=== PATIENT | female | born 1930 | race Caucasian/White ===

== ENCOUNTER 2020-07-22 23:57 | Inpatient (IN) | payer MEDICARE, OTHER ==
[2020-07-23 00:49] LABS: BILIRUBIN NEGATIVE (NEGATIVE); BLOOD TRACE-INTACT Ery/uL (NEGATIVE); CLARITY CLEAR (CLEAR); COLOR YELLOW (YELLOW); GLUCOSE (U) NORMAL (NORMAL); LEUKOCYTES NEGATIVE Leu/uL (NEGATIVE); NITRITE NEGATIVE (NEGATIVE); PROTEIN 2+ mg/dL (NEGATIVE); SPECIFIC GRAVITY 1.025 (1.001-1.030); UROBILINOGEN 0.2 mg/dL (0.2-1.0)
[2020-07-23 00:57] LABS: BACTERIA TRACE; GRANULAR CASTS TRACE; SQUAMOUS EPITHELIAL CELLS RARE; URINARY RBC RARE; URINARY WBC RARE
[2020-07-23 01:28] LABS: BASOPHIL 0.2 % (0-2); EOSINOPHIL 0 % (0-7); HCT 43.5 % (37.0-47.0); HGB 14.8 g/dl (12.5-16.0); LYMPHOCYTE 4.3 % (15-48); MCV 88.1 fL (78.0-100.0); MONOCYTE 4.4 % (0-12); MPV 10.6 fL (6.0-9.5); NEUTROPHIL 90.4 % (41-80); NRBC 0; PLT 164 K/uL (150-400); RBC 4.94 M/uL (4.20-5.40); RDW 14.9 % (11.5-14.0); WBC 10.9 K/uL (4.0-10.5)
[2020-07-23 01:36] LABS: LACTIC ACID 3.4 mmol/L (0.4-1.9)
[2020-07-23 01:39] LABS: ALBUMIN 3.5 g/dL (3.4-5.0); BILIRUBIN - TOTAL 0.7 mg/dL (0.2-1.0); BUN/CREAT RATIO (CALC) 23.6 RATIO; CREATININE 1.61 mg/dL (0.51-0.95); FT4 (FREE T4) 0.3 ng/dL (0.76-1.46); GLOBULIN (CALCULATION) 4.6 g/dL; POTASSIUM 2.8 mmol/L (3.5-5.1); TOTAL PROTEIN 8.1 g/dL (6.4-8.2)
[2020-07-23 02:01] LABS: CORONAVIRUS 2019 SARS-COV-2 POSITIVE (NEGATIVE); INFLUENZA A NAA NEGATIVE (NEGATIVE)
[2020-07-23 02:50] LABS: C-REACTIVE PROTEIN >18.00 mg/dL (<=0.90); LDH 403 U/L (81-234)
[2020-07-23 07:33] LABS: CREATININE 1.27 mg/dL (0.51-0.95); MAGNESIUM 2.2 mg/dL (1.8-2.4); POTASSIUM 2.8 mmol/L (3.5-5.1)
[2020-07-23] MEDS ORDERED: LOPRESSOR50 MG PO (19:46)
[2020-07-23] MEDS ORDERED: HCTZ12.5 MG PO (19:46)
[2020-07-23] MEDS ORDERED: KLOR-CON M 1010 MEQ PO (19:47)
[2020-07-23] MEDS ORDERED: ADALAT CC30 MG PO (19:48)
[2020-07-23] MEDS ORDERED: ZOCOR40 MG PO (19:48)
[2020-07-23] MEDS ORDERED: FOLIC ACID1 MG PO (19:48)
[2020-07-24 08:25] LABS: BASOPHIL 0.1 % (0-2); EOSINOPHIL 0 % (0-7); HCT 37.1 % (37.0-47.0); HGB 12.7 g/dl (12.5-16.0); LYMPHOCYTE 2.7 % (15-48); MCH 29.6 pg (25.0-31.0); MCHC 34.2 g/dL (32.0-36.0); MCV 86.5 fL (78.0-100.0); MONOCYTE 2.2 % (0-12); MPV 10.6 fL (6.0-9.5); NEUTROPHIL 94.3 % (41-80); NRBC 0; PLT 132 K/uL (150-400); RBC 4.29 M/uL (4.20-5.40); RDW 14.9 % (11.5-14.0); WBC 12.4 K/uL (4.0-10.5)
[2020-07-24 09:45] LABS: ALBUMIN 2.6 g/dL (3.4-5.0); ALKALINE PHOSHATASE 59 U/L (46-116); ALT 77 U/L (14-59); AST 68 U/L (15-37); BILIRUBIN - TOTAL 0.7 mg/dL (0.2-1.0); BUN 28 mg/dL (7-18); BUN/CREAT RATIO (CALC) 25.9 RATIO; CHLORIDE 104 mmol/L (98-107); CO2 (BICARBONATE) 23 mmol/L (21-32); CREATININE 1.08 mg/dL (0.51-0.95); GLOBULIN (CALCULATION) 3.9 g/dL; GLUCOSE 146 mg/dL (74-106); TOTAL PROTEIN 6.5 g/dL (6.4-8.2)
[2020-07-24 09:47] LABS: C-REACTIVE PROTEIN > 18.00 mg/dL (<=0.90); POTASSIUM 2.3 mmol/L (3.5-5.1)
[2020-07-25 03:11] LABS: BASOPHIL 0.1 % (0-2); EOSINOPHIL 0 % (0-7); HCT 40.1 % (37.0-47.0); HGB 13.6 g/dl (12.5-16.0); LYMPHOCYTE 3.2 % (15-48); MCHC 33.9 g/dL (32.0-36.0); MCV 88.3 fL (78.0-100.0); MONOCYTE 1.5 % (0-12); MPV 10.3 fL (6.0-9.5); NEUTROPHIL 94.1 % (41-80); NRBC 0; PLT 144 K/uL (150-400); RBC 4.54 M/uL (4.20-5.40); RDW 15.6 % (11.5-14.0); WBC 12.9 K/uL (4.0-10.5)
[2020-07-25 04:01] LABS: ALBUMIN 2.5 g/dL (3.4-5.0); ALKALINE PHOSHATASE 57 U/L (46-116); ALT 69 U/L (14-59); AST 60 U/L (15-37); BILIRUBIN - TOTAL 0.8 mg/dL (0.2-1.0); BUN 32 mg/dL (7-18); CHLORIDE 111 mmol/L (98-107); CO2 (BICARBONATE) 23 mmol/L (21-32); CREATININE 1.23 mg/dL (0.51-0.95); GLUCOSE 138 mg/dL (74-106); TOTAL PROTEIN 6.5 g/dL (6.4-8.2)
[2020-07-25 04:02] LABS: C-REACTIVE PROTEIN < 0.20 mg/dL (<=0.90); POTASSIUM 3.8 mmol/L (3.5-5.1)
[2020-07-26 08:42] LABS: BASOPHIL 0.2 % (0-2); EOSINOPHIL 0 % (0-7); HCT 38.9 % (37.0-47.0); HGB 13.1 g/dl (12.5-16.0); LYMPHOCYTE 4.5 % (15-48); MCH 29.8 pg (25.0-31.0); MCHC 33.7 g/dL (32.0-36.0); MCV 88.4 fL (78.0-100.0); MONOCYTE 3.7 % (0-12); MPV 10.7 fL (6.0-9.5); NEUTROPHIL 90.2 % (41-80); NRBC 0; PLT 169 K/uL (150-400); RDW 15.9 % (11.5-14.0); WBC 17.4 K/uL (4.0-10.5)
[2020-07-26 09:31] LABS: ALBUMIN 2.7 g/dL (3.4-5.0); ALKALINE PHOSHATASE 60 U/L (46-116); ALT 64 U/L (14-59); AST 56 U/L (15-37); BILIRUBIN - TOTAL 0.7 mg/dL (0.2-1.0); BUN 30 mg/dL (7-18); BUN/CREAT RATIO (CALC) 28.3 RATIO; C-REACTIVE PROTEIN >18.00 mg/dL (<=0.90); CHLORIDE 111 mmol/L (98-107); CO2 (BICARBONATE) 22 mmol/L (21-32); CREATININE 1.06 mg/dL (0.51-0.95); GLOBULIN (CALCULATION) 4.1 g/dL; GLUCOSE 161 mg/dL (74-106); POTASSIUM 3.2 mmol/L (3.5-5.1); TOTAL PROTEIN 6.8 g/dL (6.4-8.2)
[2020-07-26 13:49] LABS: BILIRUBIN NEGATIVE (NEGATIVE); BLOOD 1+ Ery/uL (NEGATIVE); CLARITY CLEAR (CLEAR); COLOR YELLOW (YELLOW); GLUCOSE (U) NORMAL (NORMAL); LEUKOCYTES NEGATIVE Leu/uL (NEGATIVE); NITRITE NEGATIVE (NEGATIVE); PROTEIN TRACE (LOW) mg/dL (NEGATIVE); UROBILINOGEN 0.2 mg/dL (0.2-1.0); pH 5.5 (5.0-9.0)
[2020-07-26 14:06] LABS: BACTERIA TRACE; URINARY RBC RARE
[2020-07-27 04:07] LABS: BASOPHIL 0.2 % (0-2); EOSINOPHIL 0 % (0-7); HCT 36.8 % (37.0-47.0); HGB 12.3 g/dl (12.5-16.0); MCH 29.4 pg (25.0-31.0); MCHC 33.4 g/dL (32.0-36.0); MCV 87.8 fL (78.0-100.0); MONOCYTE 3.5 % (0-12); MPV 10.8 fL (6.0-9.5); NEUTROPHIL 89.4 % (41-80); NRBC 0; PLT 174 K/uL (150-400); RBC 4.19 M/uL (4.20-5.40); WBC 15.7 K/uL (4.0-10.5)
[2020-07-27 05:10] LABS: ALBUMIN 2.6 g/dL (3.4-5.0); BILIRUBIN - TOTAL 0.8 mg/dL (0.2-1.0); C-REACTIVE PROTEIN 14.3 mg/dL (<=0.90); CREATININE 1.11 mg/dL (0.51-0.95); GLOBULIN (CALCULATION) 3.9 g/dL; POTASSIUM 3.2 mmol/L (3.5-5.1); TOTAL PROTEIN 6.5 g/dL (6.4-8.2)
[2020-07-28 09:46] LABS: BASOPHIL 0.2 % (0-2); EOSINOPHIL 0 % (0-7); HCT 34.2 % (37.0-47.0); HGB 11.6 g/dl (12.5-16.0); LYMPHOCYTE 6.8 % (15-48); MCH 29.5 pg (25.0-31.0); MCHC 33.9 g/dL (32.0-36.0); MONOCYTE 5.5 % (0-12); MPV 10.8 fL (6.0-9.5); NEUTROPHIL 84.2 % (41-80); NRBC 0; PLT 182 K/uL (150-400); RBC 3.93 M/uL (4.20-5.40); RDW 15.8 % (11.5-14.0); WBC 12.2 K/uL (4.0-10.5)
[2020-07-28 11:03] LABS: ALBUMIN 2.4 g/dL (3.4-5.0); BILIRUBIN - TOTAL 0.8 mg/dL (0.2-1.0); BUN/CREAT RATIO (CALC) 28.2 RATIO; C-REACTIVE PROTEIN 6.3 mg/dL (<=0.90); CREATININE 1.17 mg/dL (0.51-0.95); GLOBULIN (CALCULATION) 3.7 g/dL; POTASSIUM 2.8 mmol/L (3.5-5.1); TOTAL PROTEIN 6.1 g/dL (6.4-8.2)
[2020-08-01 05:47] LABS: BASOPHIL 0.2 % (0-2); EOSINOPHIL 0.1 % (0-7); HCT 27.1 % (37.0-47.0); HGB 9.5 g/dl (12.5-16.0); LYMPHOCYTE 4.1 % (15-48); MCH 30.2 pg (25.0-31.0); MCHC 35.1 g/dL (32.0-36.0); MONOCYTE 4.1 % (0-12); MPV 11.7 fL (6.0-9.5); NEUTROPHIL 87.5 % (41-80); NRBC 0; PLT 180 K/uL (150-400); RBC 3.15 M/uL (4.20-5.40); RDW 15.2 % (11.5-14.0)
[2020-08-01 06:19] LABS: BUN/CREAT RATIO (CALC) 26.7 RATIO; CREATININE 0.86 mg/dL (0.51-0.95)
[2020-08-01 06:29] LABS: POTASSIUM 2.3 mmol/L (3.5-5.1)
== END 2020-08-01 15:20 | disposition expired | DRG 871 ==
LOC: FER 23:57 → FTCU 07-23 04:02
PROVIDERS: Allergy & Immunology Allergy; Emergency Medicine Emergency Medical Services; Internal Medicine; Nurse Practitioner; ADMIT Internal Medicine
PROC: 8E0ZXY6 Isolation (ICD-10-PCS; principal; 2020-07-23)
PROC: XW033E5 Introduction of Remdesivir Anti-infective into Peripheral Vein, Percutaneous Approach, New Technology Group 5 (ICD-10-PCS; 2020-07-23)
PROC: 3E0333Z Introduction of Anti-inflammatory into Peripheral Vein, Percutaneous Approach (ICD-10-PCS; 2020-07-23)
DX: A41.89 Other specified sepsis (principal); J96.01 Acute respiratory failure with hypoxia; U07.1 COVID-19; J12.82 Pneumonia due to coronavirus disease 2019; N17.9 Acute kidney failure, unspecified; G93.40 Encephalopathy, unspecified; R65.20 Severe sepsis without septic shock; Z66 Do not resuscitate; Z51.5 Encounter for palliative care; E78.5 Hyperlipidemia, unspecified; K21.9 Gastro-esophageal reflux disease without esophagitis; E86.0 Dehydration; E87.6 Hypokalemia; I10 Essential (primary) hypertension; E03.9 Hypothyroidism, unspecified; R62.7 Adult failure to thrive; Z85.038 Personal history of other malignant neoplasm of large intestine; Z87.891 Personal history of nicotine dependence; Z88.6 Allergy status to analgesic agent
CPT/HCPCS: 36415; 36600; 70450; 71045; 71250; 80048; 80053; 81001; 82728; 82803; 82962; 83036; 83605; 83615; 83735; 84145; 84439; 84443; 84484; 85025; 85379; 86140; 87040; 87088; 92526; 93005; 94010; 94640; 94667; 94668; 96372; C9399; J1100; J1170; J1650; J1956; J2060; J2270; J2543; J3480; J7030; J7050; J7070; U0002